=== PATIENT | male | born 1955 | race African-American/Black ===

== ENCOUNTER → 2016-09-03 | Outpatient (CLI) | payer BC ==
--- NOTE | 2016-09-03 11:07 | KCIC ---
Examination: CT maxillofacial bones without contrast HISTORY History of chronic sinusitis, previous surgery to the nose tube in the right ear, sinus congestion, hearing loss in the right ear COMPARISON None available. TECHNIQUE Axial CT images of the maxillofacial bones were performed without contrast. Coronal sagittal reformats were performed Exposure: One or more of the following dose reduction technique were utilized for this examination: 1. Automated exposure control. 2.Adjustment of MA and /or KV according to patient size. 3. Use of iterative reconstruction technique. Findings: The bilateral frontal sinuses are patent. There is mild mucosal thickening identified in the bilateral ethmoidal sinuses, sphenoid sinuses likely due to sinus disease. No evidence of air-fluid levels identified. Probable prior sinus surgical changes identified bilaterally with widely patent osteomeatal complexes. There is depression of the medial wall of the right orbit into the right ethmoidal sinus could be developmental defect or prior trauma. There is complete opacification of the right mastoid air cells and mild opacification of the left mastoid air cells. There is a soft tissue density identified in the middle ear cavity about the right the right ear ossicles. The bilateral orbital globes appear intact with the retro-orbital fat is maintained. IMPRESSION - Complete opacification the right mastoid air cells with soft tissue density filling the middle ear cavity around the right ear ossicles. Recommend CT or MRI internal auditory canals to exclude a mass or cholesteatoma. - Mild opacification of the left mastoid air cells and complete opacification of the right mastoid air cells, nonspecific. Differential includes mastoiditis, nonspecific otitis media. - Depression of the medial wall of the right orbit likely prior injury or developmental. - Mild mucosal thickening in the bilateral ethmoidal sinus and sphenoid sinus likely sinus disease. Electronically signed by: Misbah Vaughan (Sep 03, 2016 11:06:07)
== END | disposition home or self-care (01) ==
LOC: KCIC CT 10:15
PROVIDERS: ATTEND Otolaryngology
DX: J32.9 Chronic sinusitis, unspecified (principal); H90.12 Conductive hearing loss, unilateral, left ear, with unrestricted hearing on the contralateral side
CPT/HCPCS: 70486

== ENCOUNTER → 2017-09-01 | Outpatient (CLI) | payer BC | END | disposition home or self-care (01) | LOC: KCIC MRI 08:24 | DX: M51.36 Other intervertebral disc degeneration, lumbar region (principal); M48.061 Spinal stenosis, lumbar region without neurogenic claudication; M41.86 Other forms of scoliosis, lumbar region; G89.29 Other chronic pain | CPT/HCPCS: 72148 ==

== ENCOUNTER → 2017-09-26 | Outpatient (CLI) | payer BC ==
[~2017-09-26] MED LIST: IOHEXOL 180 MG/ML 10 ML VIAL.; methylPREDNISolone ACETATE 40 MG/ML VIAL.; methylPREDNISolone ACETATE 80 MG/ML VIAL.
== END | disposition home or self-care (01) ==
LOC: PNCL 11:15
DX: M51.36 Other intervertebral disc degeneration, lumbar region (principal); I10 Essential (primary) hypertension; M17.11 Unilateral primary osteoarthritis, right knee; Z87.891 Personal history of nicotine dependence
CPT/HCPCS: 99214; J1030; J1040; Q9965

== ENCOUNTER → 2017-10-20 | Outpatient (CLI) | payer BC | END | disposition home or self-care (01) | LOC: PNCL 08:20 | DX: M51.16 Intervertebral disc disorders with radiculopathy, lumbar region (principal) | CPT/HCPCS: 62323; J1030; J1040; Q9965 ==

== ENCOUNTER → 2017-11-03 | Outpatient (CLI) | payer BC | END | disposition home or self-care (01) | LOC: PNCL 09:36 | DX: M51.16 Intervertebral disc disorders with radiculopathy, lumbar region (principal); I10 Essential (primary) hypertension | CPT/HCPCS: 99212 ==

== ENCOUNTER → 2017-12-08 | Outpatient (CLI) | payer BC ==
[~2017-12-08] MED LIST changes: +LIDOCAINE 1% PF 2 ML VIAL.
== END ==
LOC: PNCL 08:10
DX: M51.16 Intervertebral disc disorders with radiculopathy, lumbar region (principal)
CPT/HCPCS: 62323; J1030; J1040; Q9965

== ENCOUNTER → 2018-01-05 | Outpatient (CLI) | payer BC | END | disposition home or self-care (01) | LOC: PNCL 09:35 | DX: M51.16 Intervertebral disc disorders with radiculopathy, lumbar region (principal); I10 Essential (primary) hypertension; J32.9 Chronic sinusitis, unspecified; Z87.891 Personal history of nicotine dependence | CPT/HCPCS: 99212 ==

== ENCOUNTER → 2018-01-30 | Outpatient (CLI) | payer BC ==
[~2018-01-30] MED LIST changes: +AMLO2.5T PO; +ASPI-630 PO; +ATOR10TA60 PO; -IOHEXOL 180 MG/ML 10 ML VIAL.; +IOHEXOL 180 MG/ML 10 ML VIAL. ONE; -LIDOCAINE 1% PF 2 ML VIAL.; +LIDOCAINE 2% PF 2ML VIAL. ONE; +LOSA1TAB25 PO; +OMEG1CAP38 PO; +TRAM50TA PO; -methylPREDNISolone ACETATE 40 MG/ML VIAL.; +methylPREDNISolone ACETATE 40 MG/ML VIAL. ONE; -methylPREDNISolone ACETATE 80 MG/ML VIAL.; +methylPREDNISolone ACETATE 80 MG/ML VIAL. ONE
--- NOTE | 2018-01-30 17:25 | PAIN ---
DATE OF SERVICE: 01/30/2018 PROGRESS NOTE FOR PAIN CLINIC DIAGNOSIS: Lumbar radiculopathy with lumbar degenerative disk disease and lumbar herniated disk. HISTORY OF PRESENT ILLNESS: The patient is a 62-year-old male who returns for followup status post lumbar epidural steroid injection x 2. The patient has been preauthorized for a third injection and would like to proceed with that today. The patient still has significant pain in the low back and into the bilateral lower extremities. The patient reports it is slightly worse on the left than the right in the lower extremities, but still pain radiating into the posterior gluteus, posterolateral thigh, lateral anterior thigh, posterior thigh and into the lower calves, more on the left side continuously but sometimes on the right anteriorly as well. The patient reports it is an aching, tight, tingling. The patient reports it is a 10 on a scale of 10 at its worst, 9 on average, 7 at its least and is a 7 today. The patient reports it has been awakening him from sleep at night. He was increasing his distance walking previously though after the last injection and was doing household activities with greater ease and comfort without difficulty. The patient reports no new motor or sensory deficits, no new bowel or bladder incontinence or other complaints. PHYSICAL EXAMINATION: VITAL SIGNS: The patient's blood pressure is 135/84, pulse 74, respirations 16, temperature is 98.1 degrees Fahrenheit, height 5 feet 7 inches and weight is 227 pounds. GENERAL: The patient is awake, alert, oriented, appropriate, very pleasant demeanor. HEENT: Head shows normocephalic, atraumatic. Extraocular movements are intact and symmetrical. Oral cavity: Mucous membranes are moist and pink. Dentition is intact. NECK: Shows anterior throat supple without palpable lymphadenopathy noted. Swallow reflex is symmetrical. CHEST: Shows normal on inspection. Breath sounds are clear to auscultation bilaterally. HEART: Shows S1, S2 clear. No murmurs auscultated. ABDOMEN: Soft, nontender, nondistended. No palpable organomegaly is noted. No rebound or guarding demonstrated. BACK: Shows spine grossly in the midline. Normal appearing thoracic kyphosis and lumbar lordotic curvature. Lumbar paraspinous muscle shows symmetrical on inspection, on palpation shows some symmetric paraspinous musculature with palpation, shows moderate tenderness bilaterally, but only diffusely in the low lumbar distribution. The patient shows good rotational motion without difficulty. EXTREMITIES: Lower extremities show deep tendon reflexes at 2+ in the patellar and tendo-calcaneus tendons are 1+. Motor exam is strong with 5/5 dorsiflexion and extension bilaterally. Peripheral pulses are 1+. No peripheral edema is noted. Options were discussed with the patient. The patient's old chart was reviewed as his current medication regimen updated. Current review of systems updated today as well. We will proceed with a lumbar epidural steroid injection today. It is the third in this series. Risks were again discussed including, but not limited to bleeding, infection, possibility of epidural hematoma, subsequent neurologic compromise, dural puncture, headache, spinal cord and/or nerve damage, side effects of steroid medication and poor results regarding pain control. The patient understands and wished to proceed. The patient will return to the clinic in approximately 2 weeks for followup, was counseled on return appointment, activity level and side effects to be aware of. DIAGNOSIS: Lumbar radiculopathy with lumbar degenerative disk disease and lumbar herniated disk. PROCEDURE: Lumbar epidural steroid injection, translaminar approach at L4-L5 level using C-arm fluoroscopic guidance under sterile prep and drape using local anesthetic. MEDICATION INJECTED: A total of 120 mg Depo-Medrol plus 10 mL of preservative-free normal saline and 2 mL of Isovue for contrast. CONDITION AT DISCHARGE: Stable. The patient tolerated the procedure well, had no complications. RODERICK WHITE MD DR: CUCO/edilma JOB#: [id number] / [id number]
== END | disposition home or self-care (01) ==
LOC: PNCL 09:01
PROVIDERS: ATTEND Anesthesiology
DX: M51.16 Intervertebral disc disorders with radiculopathy, lumbar region (principal); Z79.82 Long term (current) use of aspirin; Z79.899 Other long term (current) drug therapy; I10 Essential (primary) hypertension; Z87.891 Personal history of nicotine dependence; J32.9 Chronic sinusitis, unspecified
CPT/HCPCS: 62323; J1030; J1040; J2001; Q9965

== ENCOUNTER → 2018-02-25 | Outpatient (CLI) | payer BC ==
[~2018-02-25] MED LIST changes: -AMLO2.5T PO; +AMLO2.5T3 PO; -IOHEXOL 180 MG/ML 10 ML VIAL. ONE; -LIDOCAINE 2% PF 2ML VIAL. ONE; -methylPREDNISolone ACETATE 40 MG/ML VIAL. ONE; -methylPREDNISolone ACETATE 80 MG/ML VIAL. ONE
--- NOTE | 2018-02-25 14:39 | PAIN ---
DATE OF SERVICE: 02/25/2018 PROGRESS NOTE FOR PAIN CLINIC DIAGNOSIS: Lumbar radiculopathy with lumbar degenerative disk disease and lumbar herniated disk. HISTORY OF PRESENT ILLNESS: The patient is a 62-year-old male who returns for followup status post lumbar epidural steroid injections x 3 since October of this year. The patient reports he did well initially with about 60% improvement, but the pain returned fairly quickly after just a few days after the last injection in the bilateral lower extremities, somewhat worse on the right than the left in the anterior thigh and then worse on the left than the right in the posterior thigh and gluteus. The patient reports it is worse with standing and walking. Sitting down relieves the pain almost to 100% and does not awaken him from sleep at night. It is just standing and walking that has become more significant. The patient reports some weakness in the legs as well with standing and walking and there is easy fatigability. The patient reports the pain is a 10 on a scale 10 at its worst, 9 on average, 8 at its least and is a 9 today. The patient reports it is aching, sharp and shooting in the low back and bilateral lower extremities, again more on the right anteriorly and left posteriorly into the thighs and lower legs into the lower calf on the left. The patient reports no new motor or sensory deficits, no new bowel or bladder incontinence or other complaints. PHYSICAL EXAMINATION: VITAL SIGNS: The patient's blood pressure is 132/82, pulse 83, respirations 18, temperature 97.1 degrees Fahrenheit, height is 5 feet 7 inches and weight is 230 pounds. GENERAL: The patient is awake, alert, oriented, appropriate, very pleasant demeanor. HEENT: Head shows normocephalic, atraumatic. Extraocular movements are intact and symmetrical. Oral cavity: Mucous membranes are moist and pink. Dentition is intact. NECK: Shows anterior throat supple without palpable lymphadenopathy noted. Swallow reflex is symmetrical. CHEST: Shows normal on inspection. Breath sounds are clear to auscultation bilaterally. HEART: Shows S1, S2 clear. No murmurs auscultated. ABDOMEN: Obese, soft, nontender, nondistended. No palpable organomegaly is noted. No rebound or guarding demonstrated. BACK: Shows spine grossly in the midline. Normal appearing thoracic kyphosis and lumbar lordotic curvature. Lumbar paraspinous muscle shows symmetrical on inspection, on palpation some moderate tenderness throughout the middle and lower distribution of the paraspinous muscles, only diffusely without asymmetry, without trigger points or radiation. The patient has good rotational motion of lumbar spine, both laterally as well as extension and flexion without significant difficulty. EXTREMITIES: Lower extremities show deep tendon reflexes at 2+ in the patellar, 1+ tendo calcaneus tendons. Motor exam is strong with 5/5 dorsiflexion and extension as well as quadriceps and hamstring flexion and equal. Peripheral pulses are 1+ posterior tibia. No peripheral edema is noted. Options were discussed with the patient. The patient's old chart was reviewed as his current medication regimen updated. Current review of systems updated today as well and we will make arrangements for a neurosurgical evaluation as he would like to explore this option. Also, discussed possible water therapy in the future. He would like to have a neurosurgical opinion first and discussed water therapy. We also discussed weight loss and exercise. The patient is having difficulty exercising because of the pain in his back and the leg. He does still walk to a gymnasium but is unable to do most of the exercises he would like to do because of the pain. We did discuss some water therapy. He would like to think about this. We will make arrangements for a neurosurgical evaluation and proceed after that. RODERICK WHITE MD DR: CUCO/edilma JOB#: [id number] / [id number]
== END | disposition home or self-care (01) ==
LOC: PNCL 08:05
PROVIDERS: ATTEND Anesthesiology
DX: M51.16 Intervertebral disc disorders with radiculopathy, lumbar region (principal); I10 Essential (primary) hypertension; M17.11 Unilateral primary osteoarthritis, right knee; Z87.891 Personal history of nicotine dependence; Z79.899 Other long term (current) drug therapy
CPT/HCPCS: 99212

== ENCOUNTER → 2018-04-06 | Outpatient (CLI) | payer BC ==
[~2018-04-06] MED LIST changes: +DOCU-109 PO; +HYDR-971 PO; +LOSA1TAB19 PO; +METH-38 PO; +METH454P2 PO
--- NOTE | 2018-04-06 15:58 | EKG ---
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
[2018-04-06 16:15] LABS: BASO # 0.1 x10^3/uL (0.0-0.2); BASO % 1 % (0-3); EOS # 0.1 x10^3/uL (0.0-0.7); EOS % 1 % (0-3); HEMATOCRIT 46.8 % (39.0-53.0); HEMOGLOBIN 16.4 g/dL (13.0-17.5); LYMPH # 1.9 x10^3/uL (1.0-4.8); LYMPH % 21 % (24-48); MEAN CORPUSCULAR HEMOGLOBIN 31 pg (25-35); MEAN CORPUSCULAR HGB CONC 35 g/dL (31-37); MEAN CORPUSCULAR VOLUME 88 fL (79-100); MONO # 1.6 x10^3/uL (0.0-1.1); MONO % 17 % (0-9); NEUT # 5.6 x10^3uL (1.8-7.7); NEUT % 61 % (31-73); PLATELET COUNT 230 x10^3/uL (140-400); RED BLOOD COUNT 5.33 x10^6/uL (4.30-5.70); RED CELL DISTRIBUTION WIDTH 15.2 % (11.5-14.5); WHITE BLOOD COUNT 9.3 x10^3/uL (4.0-11.0)
[2018-04-06 16:23] LABS: ALBUMIN 4.1 g/dL (3.4-5.0); ALBUMIN/GLOBULIN RATIO 1.1 (1.0-1.7); CALCIUM 9.3 mg/dL (8.5-10.1); CREATININE 1.3 mg/dL (0.7-1.3); GFR 67.5; POTASSIUM 3.8 mmol/L (3.5-5.1); TOTAL BILIRUBIN 0.7 mg/dL (0.2-1.0); TOTAL PROTEIN 7.8 g/dL (6.4-8.2)
== END | disposition home or self-care (01) ==
LOC: SURGPAT 13:42
PROVIDERS: ATTEND Neurological Surgery
DX: Z01.818 Encounter for other preprocedural examination (principal); M51.16 Intervertebral disc disorders with radiculopathy, lumbar region; M48.061 Spinal stenosis, lumbar region without neurogenic claudication
CPT/HCPCS: 36415; 80053; 85025; 87641; 93005

== ENCOUNTER 2018-04-10 07:26 | Day surgery (SDC) | payer BC ==
[~2018-04-10] VITALS: Ht 170.2 cm; Wt 99.8 kg
--- NOTE | 2018-04-10 06:35 | PREOP HP ---
DATE OF SERVICE: 04/10/2018 DATE OF SURGERY: 04/10/2018 HISTORY OF PRESENT ILLNESS: The patient is a pleasant 62-year-old who has had difficulty with low back pain along with pain which radiates into both of his legs. He says the pain can be in the anterior and posterior thighs. The problem started about 1 year ago spontaneously. His pain is severe and rates it as an 8/10 with tramadol. Standing and walking increases his pain. Mornings are particularly painful for him. Sitting helps him. He has had epidural steroid injections, which gave him no benefit. He did try some water exercises as well, which he said helped somewhat. PAST MEDICAL HISTORY: Medical history verified. PAST SURGICAL HISTORY: Shoulder surgery 2007, knee surgery 2008, bilateral ear surgery 2018. FAMILY HISTORY: Hypertension. SOCIAL HISTORY: Retired. . Exercises weekly. Denies substance abuse. Denies tobacco use. Drinks alcohol 1-2 times per month. Drinks tea daily. ALLERGIES: No known drug allergies. CURRENT MEDICATIONS: Losartan, atorvastatin, tramadol. REVIEW OF SYSTEMS: A 12-point review of systems was obtained and is noncontributory except for that mentioned above. PHYSICAL EXAMINATION: NEUROSURGERY EXAMINATION: GENERAL APPEARANCE: Alert, pleasant, no acute distress. HEAD: Normocephalic and atraumatic. SKIN: Warm and dry. MUSCULOSKELETAL: Lumbar paraspinal muscle bulk is normal, restricted range of motion of the lumbar spine, [id number] tenderness of lower lumbar spine with palpation, normal range of motion of the lower extremities bilaterally. EXTREMITIES: No clubbing, cyanosis or edema. NEUROLOGIC: Alert and oriented x 3, normal recent and remote memory, strength 5/5 in bilateral lower extremities, sensory was intact to light touch in bilateral lower extremities except for decrease in the anterior thighs bilaterally, reflexes were present and symmetric in the lower extremities bilaterally, positive straight leg raising on the left, negative straight leg raising on the right, forward stooped antalgic gait. IMAGING: I reviewed lumbar MRI scan from 09/01/2017. On that study, there is moderately large herniated disc at L3-L4 with stenosis at that level. The disc is largely central and slightly right-sided. At L4-L5, there is severe lateral recess narrowing on the left. ASSESSMENT/PLAN: The patient has significant back and leg pain. He has stenosis from a large disk herniation at L3-L4 combined with lateral recess stenosis and nerve root compression at L4-L5. My recommendation is that he undergo lumbar bilateral hemilaminotomies with removal of large herniated disc at L3-L4 as well as left hemilaminotomy and microdecompression at L4-L5. I discussed with him surgery and risks as well as expected postoperative course. He understands. He would like to proceed with surgery. We will make the arrangements. FOUZIA SAMUEL MD DR: MARCO ANTONIO/edilma JOB#: [id number] / [id number] THONY
[~2018-04-10 07:26] MED LIST changes: +BACITRACIN 50,000 UNIT in IV NORMAL SALINE 1000ML BAG 1,000 ML IRR ONE; -DOCU-109 PO; -HYDR-971 PO; +HYDROmorphone 2 MG/ML VIAL IV PRN; +IV RINGERS,LACTATED 1000ML 1,000 ML IV SCH; +LIDOCAINE 1% PF 2 ML VIAL. ID PRN; -METH-38 PO; +MORPHINE SULFATE 2 MG/ML VIAL. IV PRN; +ONDANSETRON PF 4 MG/2 ML VIAL. IV PRN; +PROCHLORPERAZINE 10 MG/2 ML VIAL. IV PRN; +fentaNYL PF VIAL 100 MCG/2 ML VIAL IV PRN
[2018-04-10] MEDS ORDERED: KETOROLAC 60 MG/2 ML INJ FOR OR. ONE (07:45)
[2018-04-10] MEDS ORDERED: GELATIN SPONGE SIZE 100. ONE (07:45)
[2018-04-10] MEDS ORDERED: THROMBIN TOPICAL 20,000 UNIT SPRAY.SYRN KIT TP ONE (07:45)
[2018-04-10] MEDS ORDERED: BUPIVAC MPF-EPI 0.5%-1:200000 30 ML VIAL. ONE (07:45)
[2018-04-10] MEDS ORDERED: REMIFENTANIL 2 MG VIAL. IV ONE (08:55)
[2018-04-10] MEDS ORDERED: PROPOFOL 50 ML IV ONE (08:55)
[2018-04-10] MEDS ORDERED: PROPOFOL 20 ML IV ONE (08:55)
[2018-04-10] MEDS ORDERED: ROCURONIUM 50 MG/5 ML VIAL. ONE (08:55)
[2018-04-10] MEDS ORDERED: LIDOCAINE 2% PF Vial for OR 5 ML VIAL. ONE (08:55)
[2018-04-10] MEDS ORDERED: PHENYLEPHRINE 10 MG/ML VIAL. ONE ×2 (08:55→09:01)
[2018-04-10] MEDS ORDERED: ONDANSETRON PF 4 MG/2 ML VIAL. ONE (08:55)
[2018-04-10] MEDS ORDERED: DEXAMETHASONE SOD PHOS 20 MG/5 ML VIAL. ONE (08:55)
[2018-04-10] MEDS ORDERED: MINERAL OIL/PETROLATUM,WHITE OPHTH OINT 3.5GM TUBE. ONE (09:01)
[2018-04-10] MEDS ORDERED: 0.9 % SODIUM CHLORIDE 20 ML VIAL. IJ ONE ×2 (09:01)
[2018-04-10] MEDS ORDERED: GLYCOPYRROLATE 1 MG/5 ML VIAL. ONE (09:27)
[2018-04-10] MEDS ORDERED: DESFLURANE > 120 MINUTES IH ONE (09:49)
[2018-04-10] MEDS ORDERED: REMIFENTANIL 1 MG VIAL. IV ONE ×2 (12:15→12:16)
--- NOTE | 2018-04-10 13:20 | DISCH ---
DISCHARGE INSTRUCTIONS Condition on Discharge Condition on Discharge: Stable Activity After Discharge Activity Instructions for Disc: Activity as tolerated, Avoid exertion Other activity instructions: no driving for a week Bathing Instructions: Shower-keep dressing dry Lifting Instructions after Dis: No heavy lifting, No pulling or pushing, Do not lift >10 pounds Diet after Discharge Additional Diet Restrictions: resume home diet Wound Incision Care Wound/Incision Care: Ice to area for comfort Other wound/incision instructi: may remove dressing in 48 hrs if dry then may shower, no soaking Contacting the after DC Call your doctor for: Concerns you may have Follow-Up Follow up with: Dr. Samuel's nurse in 2 weeks [phone] FOUZIA SAMUEL MD Apr 10, 2018 13:20
[2018-04-10] MEDS ORDERED: HYDR-971 PO (13:23)
[2018-04-10] MEDS ORDERED: METH-38 PO (13:23)
[2018-04-10] MEDS ORDERED: DOCU-109 PO (13:23)
[2018-04-10] MEDS: fentaNYL PF VIAL 100 MCG/2 ML VIAL IV PRN ×4 (13:31→14:07)
[2018-04-10] MEDS ORDERED: fentaNYL PF VIAL 100 MCG/2 ML VIAL ONE (13:41)
[2018-04-10] MEDS ORDERED: HYDROcodone/APAP 5/325MG 1 TAB TABLET PO ONE ×2 (14:15)
[2018-04-10 14:22] VITALS: BP 138/72
--- NOTE | 2018-04-10 15:12 | OP ---
DATE OF SURGERY: 04/10/2018 PREOPERATIVE DIAGNOSES: 1. Hypertrophic ligament and herniated lumbar disc, L3-L4 with moderate lumbar spinal stenosis and right lumbar radiculopathy. 2. Lateral recess stenosis with disc bulge and nerve root compression with radiculopathy, left L4-L5. OPERATION PERFORMED: 1. Bilateral hemilaminotomy with decompression of dura at L3-L4, right lumbar microdiscectomy L3-L4. 2. Hemilaminotomy and microdiscectomy, L4-L5 left. 3. The operation was done with EMG monitoring, SSEP monitoring, fluoroscopy, microscopic dissection. SURGEON: Trenton Samuel M.D. TRAFFIC SUPERINTENDENT: FERNANDEZ Cosby, assisted with the surgery. She assisted with the microdecompression, discectomy at L3-L4 and L4-L5 as well as the closure. OPERATIVE INDICATIONS: The patient is a pleasant 62-year-old man with difficulty with back pain along with bilateral leg pain. On imaging studies, the above-mentioned findings were evident. He failed to improve with epidural steroid injections and I recommended lumbar microsurgical decompression. I spoke with him about the surgery and the risks involved and the technique of the operation. He understood and he wished to go ahead. DESCRIPTION OF PROCEDURE: Following general endotracheal anesthesia, the patient was positioned prone on the Hugo table. Lumbar region prepped and draped in standard fashion. SILVIA hose and AV impulse boots were applied for DVT prophylaxis. Microscope was draped. Fluoroscopy was draped and brought into the field. Monitoring was established. Ancef 2 grams was given less than 1 hour prior to initiation of the surgery. Using fluoroscopic guidance, a midline incision was made extending from upper L3 to mid to lower L5. I first developed an exposure at L3-L4 on the right and placed a [place] microdisk retractor, brought in the microscope. Using the high speed air drill, I burred down a generous hemilaminotomy. I then trimmed away thickened ligamentum flavum. The dura was full and billowing and I felt that there was significant stenosis at this level. I did trim away the ligamentum flavum. I worked laterally and performed a partial foraminotomy. I then gently retracted the dura medially and incised the ligament and annulus and then began to tease back multiple moderate disc fragments. As I worked, the region became very well decompressed. Following this, I explored carefully, there were no retained fragments. The dura was under much less pressure. I irrigated copiously and I went to the left side and created exposure at L3-L4 and L4-L5, directing my attention to L3-L4, I burred down a generous hemilaminotomy, trimmed away the thickened ligamentum flavum and peeling this backward using the 2.5 and 4 mm Fehling Kerrison's. I had retracted the dura medially. I could visualize well the takeoff of the L4 root and at this level on this side, there was no significant disc bulging. The dura was still somewhat billowy, but it was under much less pressure than as seen on the right side at the initiation of the surgery. I was able to have an excellent decompression. I worked toward the midline as much as possible. The patient has significant amount of adipose tissue, which limited my angled exposure into this region, but I felt that I had an excellent decompression. I then went down to L4-L5 on the left and drilled the generous hemilaminotomy. I did perform a medial foraminotomy and I entered and incised the disc and annulus with #11 blade, gently retracting the root medially. I did perform partial foraminotomy at this level as well. The disc was bulging and I entered the disc space and removed multiple disc fragments with pituitary rongeurs, and as I worked, the region became better decompressed. I could easily retract the root medially. I felt that there was an excellent decompression at this level. I did remove the ligamentum flavum with again a 2.5 and 4 mm Kerrison rongeurs. Bone wax was used throughout the operation for any bone bleeding. The bipolar cautery was used judiciously for any bleeding. I irrigated copiously. I closed the wound in layers with absorbable suture and the skin was closed with 4-0 subcuticular stitch. The operation I felt went very well. TRENTON SAMUEL MD DR: MARCO ANTONIO/edilma JOB#: [id number] / [id number] THONY
--- NOTE | 2018-04-14 18:06 | PATHOLOGY ---
[facility] Accession Number: [id number] . 01 Material submitted: . LUMBAR DISC AND DECOMPRESSION . 01 Clinician provided ICD-10: M51.26 . 01 Clinical history: . Lumbar herniated disc with radiculopathy, lumbar stenosis . 02 Diagnosis: Segments of fibrocartilaginous, fibroadipose, and skeletal muscle tissue and bone, lumbar disc and decompression: - Degenerative changes of fibrocartilaginous tissue. (JPM:linda; 04/14/2018) QMS/04/14/2018 . 02 Comment: There is no evidence of an acute inflammatory process or malignancy. . 02 Electronically signed: . Homero Holliday MD, Pathologist NPI- [id number] . 01 Gross description: . The specimen is received in formalin, labeled "Issa Hawkins, lumbar disc and decompression", are multiple ren-white rubbery soft tissues possibly admixed with bone measuring 6.0 x 5.0 x 1.0 cm in aggregate. [employer] tissue is submitted in A1 after decalcification. ([facility]; 04/13/2018) SHS/SHS . 02 Pathologist provided ICD-10: M51.36 . 02 CPT . 052590, [id number] Specimen Comment: A courtesy copy of this report has been sent to Specimen Comment: [phone]. Specimen Comment: Report sent to Performed at: 01 [facility] [address] [facility] [address], [place] [id number] MD Bob Perez MD Phone: [phone] Performed at: 02 [facility] [address] [place], [place] [id number] MD Homero Holliday MD Phone: [phone]
== END 2018-04-10 15:35 | disposition home or self-care (01) ==
LOC: SURG 07:26
PROVIDERS: ATTEND Neurological Surgery
DX: M51.16 Intervertebral disc disorders with radiculopathy, lumbar region (principal); M48.061 Spinal stenosis, lumbar region without neurogenic claudication; Z98.890 Other specified postprocedural states; Z82.49 Family history of ischemic heart disease and other diseases of the circulatory system; Z72.89 Other problems related to lifestyle; Z79.899 Other long term (current) drug therapy
CPT/HCPCS: 63030; 63035; 97162; 97530; A7015; G8978; G8979; G8980; J0690; J1100; J1885; J2001; J2405; J2704; J3010; J3490; J7030; J7120; 76000; 88304; 88311

== ENCOUNTER → 2018-05-28 | Day surgery (SDC) | payer BC ==
[~2018-05-28] MED LIST changes: -BACITRACIN 50,000 UNIT in IV NORMAL SALINE 1000ML BAG 1,000 ML IRR ONE; +DOCU-109 PO; +HYDR-3164 PO; -HYDROmorphone 2 MG/ML VIAL IV PRN; -LIDOCAINE 1% PF 2 ML VIAL. ID PRN; +METH-38 PO; -MORPHINE SULFATE 2 MG/ML VIAL. IV PRN; -ONDANSETRON PF 4 MG/2 ML VIAL. IV PRN; -PROCHLORPERAZINE 10 MG/2 ML VIAL. IV PRN; +PROPOFOL 20 ML IV ONE; -fentaNYL PF VIAL 100 MCG/2 ML VIAL IV PRN
[2018-05-28 13:00] VITALS: BP 120/72
--- NOTE | 2018-05-28 15:59 | CONS ---
DATE OF CONSULTATION: 05/28/2018 GASTROINTESTINAL CONSULTATION REFERRING PHYSICIAN: Dr. Delano Metz. REASON FOR CONSULTATION: History of colonic polyps. HISTORY OF PRESENT ILLNESS: A 62-year-old male whose past medical history is significant for hyperlipidemia, hypertension, history of colonic polyps and history of back surgery, who is seen for a screening colon exam. Last exam was over 4 years ago. No change in bowel habits. There is no diarrhea or constipation. There has been no melena and/or hematochezia and family history likewise is unrevealing for colon cancer and colon polyps. He is otherwise without additional complaints. PAST MEDICAL HISTORY: Back surgery, hypertension and history of hyperlipidemia. ALLERGIES: None. MEDICATIONS: Include aspirin, atorvastatin, losartan, hydrochlorothiazide. FAMILY AND SOCIAL HISTORY: Nondrinker, nonsmoker. 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 REVIEW OF SYSTEMS: Twelve-point review is negative except for high blood pressure and hyperlipidemia. PHYSICAL EXAMINATION: GENERAL: Reveals a well-nourished, well-developed -[place]ian male. VITAL SIGNS: Temperature 97.2, pulse 72, respiratory rate 20. HEENT: Normocephalic and atraumatic head. Pupils and extraocular movements are not tested. Sclerae anicteric. NECK: Supple. LUNGS: Clear. CARDIOVASCULAR: Reveals an S1, S2 without S3, S4 or appreciable murmur. ABDOMEN: Reveals soft abdomen, normal bowel sounds without appreciable hepatosplenomegaly. EXTREMITIES: Reveals no cyanosis, clubbing or edema. IMPRESSION AND PLAN: History of colonic polyps. Surveillance exam is recommended at this time. Risks and benefits of the procedure including risk of hemorrhage and perforation during the operation have been discussed and he is willing to proceed at this time. FREDDIE SMITH MD DR: LIDYA/nts JOB#: [id number] / [id number] DELANO Aldridge MD
== END | disposition home or self-care (01) ==
LOC: ENDOS 11:04
PROVIDERS: ATTEND Internal Medicine Gastroenterology
DX: Z12.11 Encounter for screening for malignant neoplasm of colon (principal); K64.0 First degree hemorrhoids; Z86.010 Personal history of colon polyps; I10 Essential (primary) hypertension; E78.5 Hyperlipidemia, unspecified; Z98.890 Other specified postprocedural states; Z79.82 Long term (current) use of aspirin; Z79.899 Other long term (current) drug therapy
CPT/HCPCS: 45378; J2704

== ENCOUNTER → 2019-05-31 | Outpatient (CLI) | payer BC ==
[2018-05-28 13:00] VITALS: BP 120/72
[~2019-05-31] MED LIST changes: -AMLO2.5T3 PO; +AMLO2.5T5 PO; -IV RINGERS,LACTATED 1000ML 1,000 ML IV SCH; -PROPOFOL 20 ML IV ONE
--- NOTE | 2019-05-31 13:05 | PAIN ---
DATE OF SERVICE: 05/31/2019 PROGRESS NOTE FOR PAIN CLINIC DIAGNOSES: Lumbar radiculopathy with lumbar degenerative disk disease and post-lumbar laminectomy syndrome. HISTORY OF PRESENT ILLNESS: The patient is a 63-year-old male who returns for followup status post lumbar epidural steroid injections, last seen on 02/25/2018. The patient subsequently had a diskectomy with Dr. Fletcher on March of last year and did very well until the last month or so, the pain began to return in the low back only, but not radiating, specifically is in the lower extremities but only occasionally into the left leg with some numbness. The patient reports the pain is a 9 on a scale of 10 at its worst over the past week, 8 on average, 6 at its least and is a 6 today and mostly in the low back. The patient reports it is aching, tight, tingling other than that he was doing very well until the last few weeks, he was increasing his activity, walking, doing work activities, household activities. The patient reports he is retired now and he is being very cautious with his back. The patient reports it is better with sitting or lying down, does not bother him at night, does not awaken his from sleep, worse with walking, standing, and changing positions. The patient reports no new motor or sensory deficits, no new bowel or bladder incontinence or other complaints. PHYSICAL EXAMINATION: VITAL SIGNS: The patient's blood pressure is 131/72, pulse 78, respirations 18, temperature 98.1 degrees Fahrenheit, height is 5 feet 7 inches, weight is 231 pounds. GENERAL: The patient is awake, alert, oriented, appropriate, very pleasant demeanor. HEENT: Shows normocephalic, atraumatic. Extraocular movements are intact and symmetrical. Oral cavity shows mucous membranes moist and pink. Dentition is intact. NECK: Shows anterior throat is supple without palpable lymphadenopathy noted. Swallow reflex is symmetrical. CHEST: Shows normal on inspection. Breath sounds are clear to auscultation bilaterally. HEART: Shows S1, S2 clear. No murmurs auscultated. ABDOMEN: Soft, nontender, nondistended. No palpable organomegaly is noted. No rebound or guarding demonstrated. BACK: Shows spine grossly in the midline. Normal-appearing thoracic kyphosis and lumbar lordotic curvature is slightly flattened with well-healed surgical scar noted in the midline. Lumbar paraspinous muscle shows symmetrical on inspection. On palpation shows some moderate tenderness diffusely bilaterally going diffusely without significant radiation. The patient has good rotational motion of the lumbar spine, both laterally as well as extension and flexion without difficulty. EXTREMITIES: Lower extremities show deep tendon reflexes at 2+ in the patellar, 1+ in the tendo-calcaneus tendons. Motor exam is strong with 5/5 dorsiflexion, extension, quadriceps and hamstring flexion and symmetrical. Peripheral pulses are 1+ in the posterior tibia. No peripheral edema is noted bilaterally. Options were discussed with the patient. The patient's old chart was reviewed as his current medication regimen updated. Current review of systems updated today as well. We will try Medrol Dosepak. The patient was given prescription as well as instructions and side effects to be aware of with the medication. If not significantly better, we will have him follow up with Dr. Fletcher as well. We will attempt to repeat MRI scan at that time. The patient understands and agrees and will follow up as scheduled. RODERICK WHITE MD DR: [facility]/edilma JOB#: [id number] / [id number]
== END | disposition home or self-care (01) ==
LOC: PNCL 10:12
PROVIDERS: ATTEND Anesthesiology
DX: M51.36 Other intervertebral disc degeneration, lumbar region (principal); M96.1 Postlaminectomy syndrome, not elsewhere classified
CPT/HCPCS: G0463